=== PATIENT | male | born 1955 ===

== ENCOUNTER 2021-01-14 11:00 | Day surgery (SDC) | payer OTHER ==
[~2021-01-14 11:00] MED LIST: CARVEDILOL25 MG; DIGOXIN; FUROSEMIDE10 MG/1 M2; SIMVASTATIN20 MG; XARELTO20 MG; ZESTRIL10 M1
[2021-01-14] MEDS ORDERED: ULTRACET PO (14:59)
== END 2021-01-14 22:45 | disposition home or self-care (01) ==
LOC: CIR.AMB 11:00
PROVIDERS: ATTEND Surgery
DX: D12.8 Benign neoplasm of rectum (principal); Z20.822 Contact with and (suspected) exposure to COVID-19